=== PATIENT | male | born 1945 | race Caucasian/White ===

== ENCOUNTER → 2017-06-22 | Outpatient (CLI) | payer OTHER | LOC: FIMAGING 10:16 | PROVIDERS: ATTEND Internal Medicine | DX: R07.9 Chest pain, unspecified (principal); R06.02 Shortness of breath; R68.89 Other general symptoms and signs ==

== ENCOUNTER → 2017-06-29 | Outpatient (CLI) | payer OTHER | LOC: BHFA 09:00 | PROVIDERS: ATTEND Internal Medicine Cardiovascular Disease | DX: R07.9 Chest pain, unspecified (principal); R06.02 Shortness of breath ==

== ENCOUNTER 2018-10-29 11:59 | Inpatient (IN) | payer OTHER ==
[2018-10-29] MEDS ORDERED: ACETAMINOPHEN 325 MG TAB PO ONE (12:19)
[2018-10-29] MEDS ORDERED: NS 1,000 ML IV ONE ×3 (12:37→14:02)
[2018-10-29 12:45] LABS: PLATELET COUNT 199 10^3/uL (150-400)
--- NOTE | 2018-10-29 13:15 | EDPHY ---
H & P Stated Complaint: SOB, cough x days, fatigue--sent from for tachy Time Seen by Provider: 10/29/18 12:18 HPI/ROS: CHIEF COMPLAINT: Cough, fever HISTORY OF PRESENT ILLNESS: 72-year-old male presents with cough and fever. Onset of a productive cough 1 week ago. The cough has gradually increased and is now moderate and productive, associated with fever and decreased appetite. He was seen in urgent care just prior to arrival and sent to the emergency department because of tachycardia, HR 160. Recent history of palpitations and rapid heart rate. Feels tired during the episodes, though no dizziness, SOB, cp. Has been evaluated by Dr. Rascon in the office, without a clear etiology or diagnosis, according to the patient. Denies shortness of breath or chest pain. REVIEW OF SYSTEMS: complete 10 point ROS reviewed and is negative except for the noted elements in the HPI - Medical/Surgical History Hx Asthma: No Hx Chronic Respiratory Disease: No Hx Diabetes: No Hx Cardiac Disease: No Hx Renal Disease: No Hx Cirrhosis: No Hx Alcoholism: No Hx HIV/AIDS: No Hx Splenectomy or Spleen Trauma: No Other PMH: neg. dr rascon --neg cardiac workup 2016 - Social History Smoking Status: Never smoked Alcohol Use: Sober Drug Use: None Additional Social History: - Physical Exam Exam: General Appearance: Alert, pleasant and smiling Eyes: Pupils equal and round, no conjunctival pallor or injection ENT, Mouth: Mucous membranes moist Neck: Normal inspection Respiratory: Rales at the right base Cardiovascular: Regular rate and rhythm, no murmur Gastrointestinal: Abdomen is soft and nontender Neurological: A&O, nonfocal exam Skin: Warm and dry, no rash Extremities: Nontender, no pedal edema Psychiatric: Mood and affect normal Constitutional: Initial Vital Signs Temperature (C) 38.0 C 10/29/18 12:03 Heart Rate 165 H 10/29/18 12:03 Respiratory Rate 18 10/29/18 12:03 Blood Pressure 89/59 L 10/29/18 12:03 O2 Sat (%) 94 10/29/18 12:03 O2 Delivery Mode Room Air Allergies/Adverse Reactions: No Known Allergies Allergy (Verified 10/29/18 12:02) Home Medications: Medication Instructions Recorded Cholecalciferol Vit D3 [Vitamin D3 2,000 units PO HS 10/29/18 2000 units tab (OTC)] Sildenafil Citrate [Viagra] 25 mg PO DAILY PRN 10/29/18 Metoprolol Tartrate [Lopressor 25 25 mg PO BID #60 tab 10/30/18 mg (*)] guaiFENesin/DEXTROMETHORPHAN 10 ml PO Q4HRS PRN ml 10/30/18 [Robitussin Dm Oral Liquid (*)] levOFLOXACIN [levAQUIN (*)] 750 mg PO DAILY AT 10AM #3 tab 10/30/18 Medical Decision Making - Diagnostics EKG Interpretation: EKG interpreted by me reveals SVT, rate 170. Interpretation: Abnormal EKG Imaging Results: Chest X-Ray 10/29/18 12:19 Impression: 1. Bronchitis/airways disease. 2. Suspect early right lower lobe pneumonia. Findings and recommendations discussed with Emergency Department physician, JULIETH BETTS at 12:50 hour, 10/29/2018. Final report concurs with initial preliminary interpretation. Imaging: Discussed imaging studies w/ scallop cutter Radiologist ED Course/Re-evaluation: This patient presents with cough and fever. On arrival, he was in SVT with a systolic blood pressure of 89. He spontaneously converted to normal sinus rhythm and blood pressure normalized. Chest x-ray reveals a right lower lobe infiltrate, which correlates with the patient's exam. IV normal saline 1 L given. During his ED course, he was in and out of SVT. Diltiazem 10 mg IV given. Heart rate normalized after IV diltiazem. The patient remained in normal sinus rhythm, with occasional PACs, but no subsequent episodes of SVT during his ED stay. A 2nd L of normal saline given. Blood cultures were drawn and Rocephin and Zithromax IV given for pneumonia. Does not meet SIRS criteria , lactate 1.4. The hospitalist service was consulted for admission. Shayla Lal NP consulted for cardiology. I spent a total of 35 minutes of critical care time in obtaining history, performing a physical exam, bedside monitoring of interventions, collecting and interpreting tests and discussion with consultants but not including time spent performing procedures. Organ at risk: Cardiopulmonary Differential Diagnosis: Differential diagnosis includes does not limited to respiratory failure, acute bronchitis, atrial fibrillation, ventricular dysrhythmia, ACS. - Data Points Laboratory Results: Laboratory Results 10/29/18 12:25 10/29/18 12:25 Microbiology Results: MICROBIOLOGY 10/29/18 12:40 Blood Blood Culture - Preliminary 10/29/18 12:25 Blood Blood Culture - Preliminary Medications Given: Discontinued Medications Acetaminophen (Tylenol) 650 mg PO EDNOW ONE Stop: 10/29/18 12:20 Last Admin: 10/29/18 12:38 Dose: 650 mg Diltiazem HCl (Cardizem 25 Mg/5 Ml Vial) 10 mg IVP EDNOW ONE Stop: 10/29/18 13:21 Last Admin: 10/29/18 13:42 Dose: 10 mg Enoxaparin Sodium (Lovenox) 40 mg SC DAILY MEREDITH Stop: 04/28/19 08:59 Last Admin: 10/30/18 09:18 Dose: 40 mg Guaifenesin/Dextromethorphan (Robitussin Dm Oral Liquid) 10 ml PO Q4HRS PRN PRN Reason: Cough, Moderate Stop: 04/27/19 16:24 Last Admin: 10/30/18 10:05 Dose: 10 ml Sodium Chloride (Ns) 1,000 mls @ 0 mls/hr IV ONCE ONE; Wide Open PRN Reason: Protocol Stop: 10/29/18 12:38 Last Admin: 10/29/18 12:52 Dose: 1,000 mls Azithromycin 500 mg/ Sodium (Chloride) 255 mls @ 255 mls/hr IV EDNOW ONE PRN Reason: Protocol Stop: 10/29/18 14:19 Last Admin: 10/29/18 15:40 Dose: 255 mls Ceftriaxone Sodium/Dextrose (Rocephin 1 Gm (Premix)) 50 mls @ 100 mls/hr IV EDNOW ONE PRN Reason: Protocol Stop: 10/29/18 13:48 Last Admin: 10/29/18 13:43 Dose: 50 mls Sodium Chloride (Ns) 1,000 mls @ 3,000 mls/hr IV ONCE ONE Stop: 10/29/18 14:03 Last Admin: 10/29/18 15:01 Dose: Not Given Sodium Chloride (Ns) 1,000 mls @ 0 mls/hr IV ONCE ONE; Wide Open PRN Reason: Protocol Stop: 10/29/18 14:03 Last Admin: 10/29/18 14:03 Dose: 1,000 mls Azithromycin 250 mg/ Sodium (Chloride) 252.5 mls @ 252.5 mls/hr IV DAILY MEREDITH PRN Reason: Protocol Stop: 10/30/18 12:00 Last Admin: 10/30/18 09:57 Dose: 252.5 mls Ceftriaxone Sodium 2 gm/ (Sodium Chloride) 50 mls @ 100 mls/hr IV DAILY MEREDITH PRN Reason: Protocol Stop: 10/30/18 12:00 Last Admin: 10/30/18 08:56 Dose: 50 mls Metoprolol Tartrate (Lopressor) 25 mg PO BID [facility] Stop: 04/27/19 20:59 Last Admin: 10/30/18 09:18 Dose: 25 mg Departure - Departure Disposition: [facility] Inpatient Acute Clinical Impression: SVT (supraventricular tachycardia) Pneumonia Qualifiers: Pneumonia type: due to unspecified organism Laterality: right Lung location: lower lobe of lung Qualified Code(s): J18.1 - Lobar pneumonia, unspecified organism Condition: Fair
[2018-10-29] MEDS ORDERED: AZITHROMYCIN IV 500 MG in NS 250 ML IV ONE (13:20)
[2018-10-29] MEDS ORDERED: DILTIAZEM 25 MG/5 ML VIAL IVP ONE (13:20)
[2018-10-29] MEDS ORDERED: ONDANSETRON 4 MG/2 ML VIAL IVP PRN (13:44)
[2018-10-29] MEDS ORDERED: ALBUTEROL 3 ML DEYVIAL IH PRN (13:44)
[2018-10-29] MEDS ORDERED: ACETAMINOPHEN 325 MG TAB PO PRN (13:44)
[2018-10-29] MEDS ORDERED: ONDANSETRON DISINTEGRATING 4 MG TAB PO PRN (13:44)
--- NOTE | 2018-10-29 14:46 | CPEKG ---
Test Reason : OPEN Blood Pressure : / mmHG Vent. Rate : 071 BPM Atrial Rate : 073 BPM P-R Int : 141 ms QRS Dur : 079 ms QT Int : 409 ms P-R-T Axes : 063 034 057 degrees QTc Int : 445 ms Sinus rhythm Supraventricular bigeminy Confirmed by Farzana Betts ([id number]) on 10/29/2018 2:46:02 PM Referred By: FARZANA BETTS Confirmed By:Farzana Betts
--- NOTE | 2018-10-29 14:48 | CPEKG ---
Test Reason : OPEN Blood Pressure : / mmHG Vent. Rate : 170 BPM Atrial Rate : 170 BPM P-R Int : 075 ms QRS Dur : 150 ms QT Int : 285 ms P-R-T Axes : 094 018 056 degrees QTc Int : 480 ms Supraventricular tachycardia Confirmed by Farzana Graf ([id number]) on 10/29/2018 2:47:58 PM Referred By: Farzana Graf Confirmed By:Farzana Graf
--- NOTE | 2018-10-29 15:53 | PDGENHP ---
History and Physical - Chief Complaint Cough, Fever - History of Present Illness Ludin Shepherd is a 72 yo M with no significant PMHx who presents to [facility] for evaluation of cough and SOB. He reports that nonproductive cough started about 1 week ago along with sore throat. These symptoms continued and worsened over the past week and patient developed fevers (measured Tmax 101 at home) and chills. He reports some SOB but denies any d/c, n/v, rash, dysuria, edema, headache. He presented to urgent care for his symptoms earlier today and was sent to [facility] ED due to elevated HR in the 150's. He denies any chest pain/ discomfort, palpitations, edema, LH/dizziness. He does note some dyspnea with significant exertion that he has experienced in the past on difficult hikes but he denies any HATFIELD in normal activities. History Information - Allergies/Home Medication List Allergies/Adverse Reactions: No Known Allergies Allergy (Verified 10/29/18 12:02) Home Medications: Cholecalciferol Vit D3 [Vitamin D3 2000 units tab (OTC)] 2,000 units PO HS 10/29 [Last Taken 10/28/18] Sildenafil Citrate [Viagra] 25 mg PO DAILY PRN 10/29/18 [Last Taken Unknown] I have personally reviewed and updated: family history, medical history, social history, surgical history - Past Medical History no pertinent PMH - Surgical History Reports: no pertinent surgical hx - Family History Positive for: non-pertinent - Social History Smoking Status: Never smoked Alcohol Use: Sober Drug Use: None Review of Systems Review of Systems: ROS: 10pt was reviewed & negative except for what was stated in HPI & below Physical Exam Physical Exam: Temp Pulse Resp BP Pulse Ox 36.6 C 154 H 12 113/63 96 10/29/18 14:34 10/29/18 14:34 10/29/18 14:34 10/29/18 14:34 10/29/18 14:34 Constitutional: chronically ill appearing Eyes: PERRL Ears, Nose, Mouth, Throat: moist mucous membranes Cardiovascular: regular rate and rhythym Respiratory: no respiratory distress Gastrointestinal: soft, non-tender abdomen Genitourinary: No simmons in urethra Skin: warm Musculoskeletal: full muscle strength Neurologic: AAOx3 Psychiatric: interacting appropriately Lab Data & Imaging Review 10/29/18 12:25 10/29/18 12:25 WBC 10.71 10^3/uL (3.80-9.50) H 10/29/18 12:25 RBC 4.64 10^6/uL (4.40-6.38) 10/29/18 12:25 Hgb 14.4 g/dL (13.7-17.5) 10/29/18 12:25 Hct 42.8 % (40.0-51.0) 10/29/18 12:25 MCV 92.2 fL (81.5-99.8) 10/29/18 12:25 MCH 31.0 pg (27.9-34.1) 10/29/18 12:25 MCHC 33.6 g/dL (32.4-36.7) 10/29/18 12:25 RDW 13.0 % (11.5-15.2) 10/29/18 12:25 Plt Count 199 10^3/uL (150-400) 10/29/18 12:25 MPV 9.4 fL (8.7-11.7) 10/29/18 12:25 Neut % (Auto) 81.4 % (39.3-74.2) H 10/29/18 12:25 Lymph % (Auto) 7.7 % (15.0-45.0) L 10/29/18 12:25 [place] % (Auto) 10.2 % (4.5-13.0) 10/29/18 12:25 Eos % (Auto) 0.1 % (0.6-7.6) L 10/29/18 12:25 Baso % (Auto) 0.1 % (0.3-1.7) L 10/29/18 12:25 Nucleat RBC Rel Count 0.0 % (0.0-0.2) 10/29/18 12:25 Absolute Neuts (auto) 8.72 10^3/uL (1.70-6.50) H 10/29/18 12:25 Absolute Lymphs (auto) 0.83 10^3/uL (1.00-3.00) L 10/29/18 12:25 Absolute Monos (auto) 1.09 10^3/uL (0.30-0.80) H 10/29/18 12:25 Absolute Eos (auto) 0.01 10^3/uL (0.03-0.40) L 10/29/18 12:25 Absolute Basos (auto) 0.01 10^3/uL (0.02-0.10) L 10/29/18 12:25 Absolute Nucleated RBC 0.00 10^3/uL (0-0.01) 10/29/18 12:25 Immature Gran % 0.5 % (0.0-1.1) 10/29/18 12:25 Immature Gran # 0.05 10^3/uL (0.00-0.10) 10/29/18 12:25 VBG Lactic Acid 1.4 mmol/L (0.7-2.1) 10/29/18 12:25 Sodium 133 mEq/L (135-145) L 10/29/18 12:25 Potassium 4.2 mEq/L (3.5-5.2) 10/29/18 12:25 Chloride 102 mEq/L (97-110) 10/29/18 12:25 Carbon Dioxide 19 mEq/l (22-31) L 10/29/18 12:25 Anion Gap 12 mEq/L (6-14) 10/29/18 12:25 BUN 16 mg/dL (7-23) 10/29/18 12:25 Creatinine 1.0 mg/dL (0.7-1.3) 10/29/18 12:25 Estimated GFR > 60 10/29/18 12:25 Glucose 111 mg/dL (70-100) H 10/29/18 12:25 Calcium 8.9 mg/dL (8.5-10.4) 10/29/18 12:25 Assessment & Plan Assessment: Sepsis - Patient with tachycardia, fevers (Tmax 101), mild leukocytosis, CXR on admission showing likely RUL PNA - LA 1.4 on admission - Initially tachycardic (HR 150's, SVT), Hypotensive (90/60), s/p 1L IVF in ED and conversion to NSR - Will treat will additional 1L IVF bolus (30cc kg = 2.1 L) - S/p Ceftriaxone and Azithromycin in ED, will continue for now - Respiratory PCR Positive for Parainfluenza - Blood cultures collected x2 SVT (supraventricular tachycardia) (Acute) - HR 150's on urgent care, has had multiple episodes since arrival to ED - Occurred when I was in room, with HR 150's narrow complex, resolved with vagal maneuver - No cardiac hx, had w/u in 2016 with TTE and treadmill stress test - Will order repeat TTE - Cardiology consulted, will f/u recommendations CAP - CXR reveals early RUL infiltrate, meeting sepsis criteria as above, possibly superimposed on viral process vs. viral PNA - S/p Ceftriaxone and Azithromycin, will continue for now Parainfluenza Virus - Supportive care with antitussives, mucolytics Hyponatremia - Na 133 on admission - In setting of recent decreased PO intake - Repeat Na in the AM FEN: additional 1L IVF bolus, Regular DVT PPx: Lovenox Code: FULL Dispo: Admit to Medicine
[2018-10-29] MEDS ORDERED: GUAIFENESIN/DM 10 ML UDCUP PO PRN (16:25)
--- NOTE | 2018-10-29 17:43 | GCON ---
[f rep st] CONSULTATION CARDIOLOGY CONSULTATION. DATE OF CONSULTATION: 10/29/2018 INDICATIONS: We are asked by Dr. Field to evaluate and treat the patient for SVT. HISTORY OF PRESENT ILLNESS: This is a 72-year-old man who presented to the emergency room with week-long history of cough and shortness of breath and temperature. He was noted to have a heart rate of 150 beats per minute, so he was sent from Urgent Care to the ER. SVT was seen on the monitor, and he was given a dose of diltiazem IV and he converted to sinus rhythm. However, he did apparently go in and out of this SVT while he was in the ER. Upon arrival to the floor, he was in SVT at around 150-160 beats per minute. This did convert after vagal maneuver of bearing down. He was mostly unaware of his fast heart rate. He has not had any SVT since. He denies any prior history of arrhythmia; however, he has been evaluated over the last 2-3 years for symptoms of ongoing exertional dyspnea and decreased exercise tolerance. He had seen Dr. Rios at [facility] and had an echocardiogram, an MVO2 test, and standard stress test , and all were negative for cardiac etiology for his symptoms. He was also seen by Pulmonary and had a normal in-office spirometry. He was eventually given an inhaler to use prior to exercise which he does report seems to have helped. He describes symptoms of a strong heartbeat, but this is only when he is at rest. When he is doing his usual hiking, with his ,in the [facility] , he is not able to keep up with her and experiences more shortness of breath than he had in the past. He denies any definite symptoms of palpitations or racing heart rates at this time. He has noted recently that he can hike just fine going up hill, but once he is coming down hill and going a little faster and when he stops, he becomes very lightheaded and feels like he may pass out. He has never had any stefano syncope. He has experienced near syncope with positional changes. He did see Dr. Farley in the office on October 23. He reported HATFIELD and exercise intolerance. At that time, a stress test, echocardiogram, and a ZIO monitor were ordered. The patient did schedule the echo and the stress test; however, he does not recall a monitor being ordered and this is not scheduled. He is currently feeling okay and is in sinus rhythm with some PACs. He did have a nasal sinus swab in the ER which was positive for influenza. PAST MEDICAL HISTORY: No significant medical issues. SOCIAL HISTORY: He has never smoked tobacco. He does not drink significant alcohol. He is . He lives in [place] and is retired. ALLERGIES: No known allergies. HOME MEDICATIONS: He takes a vitamin D supplement and has an inhaler for prior to exercise and takes Viagra 50 mg as needed. REVIEW OF SYSTEMS: A 10-point review of systems was negative except for what is noted in the HPI. LAB WORK: WBC 10.7, hemoglobin 14.4, hematocrit 42.8, platelets 199. Sodium 133, potassium 4.2, chloride 102 bicarb 19, BUN 16, creatinine 1.0, glucose 111. EKG demonstrates SVT at 170 beats per minute. Chest x-ray: Patchy right lower lobe opacity, likely representing early pneumonia. No pleural effusion. PHYSICAL EXAM: VITAL SIGNS: Blood pressure 103/46, heart rate 85, respirations 19, O2 saturation on room air is 94%, temperature is 36.7. GENERAL : He is alert and oriented, in no acute distress, sitting up in his chair. CARDIAC: Regular rate and rhythm without a murmur, rub, or gallop. LUNGS: Decreased breath sounds in the right lower lobe. EXTREMITIES: Warm. No lower extremity edema. No discoloration. ASSESSMENT AND PLAN: 1. Supraventricular tachycardia. EKG demonstrates atrial flutter versus supraventricular tachycardia. Was reviewed with Dr. Arias. He did convert once he was transferred to PCU with a vagal maneuver. He denies symptoms of definite palpitations in the past; however, has had workups over the years for decreased exercise tolerance and dyspnea on exertion which may represent underlying arrhythmia. His stress test, MVO2 test, and echocardiograms in the past have been normal and have not demonstrated any cardiac etiology for his symptoms. He did have a ZIO monitor ordered this week by Dr. Farley and has not worn that yet. Will continue to monitor on telemetry. Further recommendations pending hospital course. For now, we will start metoprolol 25 mg twice daily due to the fact that he has been going in and out of this supraventricular tachycardia and to try to decrease episodes while he is treated for flu and possible pneumonia. Further recommendations pending hospital course. 2. Influenza A which is being managed by the hospitalist. /[id number]/MODL MTDD
[2018-10-29] MEDS: METOPROLOL TARTRATE 25 MG TAB PO SCH (20:52)
[2018-10-30 04:28] LABS: PLATELET COUNT 175 10^3/uL (150-400)
[2018-10-30 07:37] VITALS: BP 134/74
[2018-10-30] MEDS ORDERED: ENOXAPARIN 40 MG/0.4 ML SYR SC SCH (09:00)
[2018-10-30] MEDS ORDERED: AZITHROMYCIN IV 250 MG in NS 250 ML IV SCH (09:00)
[2018-10-30] MEDS: METOPROLOL TARTRATE 25 MG TAB PO SCH (09:18)
--- NOTE | 2018-10-30 09:43 | ASMTLACE ---
LACE Length of stay for Answers: Less than 1 day current admission Acuity / Level of Answers: No Care: Did the patient have an inpatient admission? # of Emergency department Answers: 1-2 visits in the last 6 months Score: 1 Date Signed: 10/30/2018 09:42 AM Electronically Signed By:Doris Amor RN
--- NOTE | 2018-10-30 09:45 | ASMTBHDC ---
Notes Note: Notes: Patient plan of care discussed with MD. He was admitted via ED with positive influenza and intermittent SVT. Now in NSR and started on beta marita, Medically cleared for independent discharge to home with . No current needs. Plan: Dc to home with family support. Date Signed: 10/30/2018 09:44 AM Electronically Signed By:Doris Amor RN
--- NOTE | 2018-10-30 10:38 | ECHO ---
[email or web address] [address] [address] Main: [phone] Echocardiography Examination Transthoracic Name: ALMAS MORAN MR#: [id number] Study Date: 10/30/2018 Study Time: 08:58 AM Date of : 1945 Age: 72 year(s) Height: 182.9 cm (72 in.) Weight: 75.75 kg (167 lb.) BSA: 1.97 m2 Gender: Male Examination: Echo Contrast: Image Quality: Rhythm: Normal sinus rhythm Heart Rate: 68 bpm BP: 134 mmHg/74 mmHg Indication: PNA, Supraventricular Tachycardia Procedure Staff Referring Physician: Lockstitch Topstitcher: William Mendez RDCS Reading Physician: Gigi Arias MD Requesting Provider: Ordering Physician: Ayad Field Indication: PNA, Supraventricular Tachycardia Measurements Chambers AV/MV Label Value Normal Value Label Value Normal Value LVDd, 2D 3.6 cm (4.2cm - 5.9cm) MV E Vmax 0.7 m/s LVDs, 2D 2.1 cm (2.1cm - 4cm) MV A Vmax 0.56 m/s IVSd, 2D 0.9 cm (0.6cm - 1.1cm) MV E/A 1.25 LVPWd, 2D 1 cm (0.6cm - 1cm) MV E/E' lateral 6.1 LVEF, 2D 72 % (54% - 74%) MV E/E' septal 8.9 (0.45 - 1.25) RVDd, 2D 2.4 cm (1.9cm - 3.8cm) MV E' septal 0.08 m/s LA Volume, BP 51 ml (18ml - 58ml) MR Vmax 4.37 m/s LAESV index, BP 25.9 ml/m2 MR VTI 158 cm Additional Vessels MV E' lateral 0.12 m/s Label Value Normal Value MV E/E' mean 7 AoRoot, MM 3.3 cm (2.2cm - 3.7cm) MV E' mean 0.1 m/s TV/PV Label Value Normal Value RA Pressure 5 mmHg RVSP 44 mmHg TR Pmax 39 mmHg TR Vmax 3.11 m/s PV PGmax 2 mmHg PV Vmax, Caliper 0.76 m/s (0.6m/s - 0.9m/s) Patient: ALMAS MORAN Study Date: 10/30/2018 Page 1 of 2 08:58 AM Conclusions 1. Normal LV systolic funtion. EF 70-75%. 2. Mild MR. 3. Mild TR, mild pulm HTN, estimated RVSP 44mmHg. 4. No pericardial effusion. Findings Left Ventricle: Left ventricle is normal in size. Normal global systolic left ventricular function. The EF is visually estimated to be 75 %. EF range is estimated at 70 % - 75 %. Left ventricle wall thickness is normal. Diastolic Dysfunction is indeterminate. Right Ventricle: Normal size right ventricle. Right ventricular systolic function is normal. Left Atrium: The left atrium is normal in size. Right Atrium: The right atrium is normal in size. Mitral Valve: Mitral valve appears structurally normal. Mild mitral regurgitation. No mitral valve stenosis. Aortic Valve: No significant aortic valve regurgitation. There is no aortic stenosis. The aortic valve is trileaflet. Tricuspid Valve: Tricuspid valve leaflets are normal in appearance and function. Mild tricuspid regurgitation. Right Ventricular systolic pressure is measured at 44 mmHg. Pulmonary artery pressure is mildly increased. Pulmonic Valve: Pulmonic leaflets are normal in appearance and function. No significant pulmonic valve regurgitation is evident. Aorta: The aorta is normal. The aortic root size in M-mode measures 3.3 cm. Aorta Measurements AoRoot, MM is 3.3 cm. Pericardium: No pericardial effusion. Exam Details Procedure Ordered: Echo (No Signature Object) Patient: ALMAS MORAN Study Date: 10/30/2018 Page 2 of 2 08:58 AM [id number]
--- NOTE | 2018-10-30 14:57 | PDDCSUM ---
Discharge Summary Discharge Summary: Date of Admission: 10/29/2018 Date of Discharge: 10/30/2018 Consults: Cardiology Procedures: CXR, TTE Followup: Cardiology, PCP Hospital Course Problem List: Sepsis - Patient with tachycardia, fevers (Tmax 101), mild leukocytosis, CXR on admission showing likely RUL PNA - LA 1.4 on admission - Initially tachycardic (HR 150's, SVT), Hypotensive (90/60), s/p 1L IVF in ED and conversion to NSR - Gave an additional 1L IVF bolus (30cc kg = 2.1 L) - S/p Ceftriaxone and Azithromycin in ED, will transition to Levaquin 750 mg qd to complete 5 day total course - Respiratory PCR Positive for Parainfluenza - Blood cultures collected NGTD SVT (supraventricular tachycardia) (Acute) - HR 150's on urgent care, has had multiple episodes since arrival to ED - Occurred when I was in room, with HR 150's narrow complex, resolved with vagal maneuver - No cardiac hx, had w/u in 2016 with TTE and treadmill stress test - TTE during admission with no significant findings - Cardiology consulted, recommend starting 25 mg Metoprolol BID and f/u with Dr. Farley for Zio Patch to continue to monitor for further arrhythmia CAP - CXR reveals early RUL infiltrate, meeting sepsis criteria as above, possibly superimposed on viral process vs. viral PNA - S/p Ceftriaxone and Azithromycin, transition to Levaquin as above Parainfluenza Virus - Supportive care with antitussives, mucolytics Hyponatremia - Na 133 on admission , 137 morning of discharge - In setting of recent decreased PO intake Time spent on discharge was >35 minutes with >50% of time spent on patient education and counseling. Patient was discharged sooner than anticipated due to unexpected clinical improvement.
--- NOTE | 2018-10-31 17:39 | PDMN ---
Medical Necessity Medical necessity: Pt meets IP criteria per MD & MCG M-160; est los >2 mn for eval/tx of sepsis w/SVT, pneumonia & parinfluenza virus; admit for further monitoring, IVFs, IV abx & Cardiology consult; per H&P & order 10/29/18
== END 2018-10-30 11:37 | disposition home or self-care (01) | DRG 871 ==
LOC: OBSVTOIN 13:46 → F2W 14:20
PROVIDERS: ADMIT Internal Medicine; ATTEND Internal Medicine
DX: A41.9 Sepsis, unspecified organism (principal); J18.8 Other pneumonia, unspecified organism; I47.1 Supraventricular tachycardia; E87.1 Hypo-osmolality and hyponatremia; E86.9 Volume depletion, unspecified; B34.8 Other viral infections of unspecified site
CPT/HCPCS: 96365; J0456; J0696; J1650

== ENCOUNTER → 2018-11-27 | Outpatient (CLI) | payer OTHER | LOC: BHFA 09:30 ==